=== PATIENT | female | born 1940 | race Caucasian/White ===

== ENCOUNTER 2016-05-21 06:22 | Outpatient (CLI) | payer MEDICARE ==
[~2016-05-21] VITALS: Ht 175.3 cm; Wt 34.0 kg
[2016-05-21 07:08] LABS: HEMOGLOBIN 10.5 gm/dl (12.3-15.3); RED BLOOD COUNT 4.48 M/UL (4.00-5.10); WHITE BLOOD COUNT 12.7 K/UL (4.5-11.0)
[2016-05-21 07:18] LABS: BUN/CREATININE RATIO 57 (0-10)
[2016-05-21] MEDS ORDERED: NORCO 5-325 TA1 EACH PO (09:56)
[2016-05-21] MEDS ORDERED: DALIRESP500 MCG PO (09:57)
[2016-05-21] MEDS ORDERED: NEURONTIN 100100 MG PO (09:57)
[2016-05-21] MEDS ORDERED: SYMBICORT 80-10.2 GM INH (09:58)
[2016-05-21] MEDS ORDERED: ASPIR 8181 MG PO (09:58)
[2016-05-21] MEDS ORDERED: PULMICORT0.25 MG/1 INH (09:59)
[2016-05-21] MEDS ORDERED: BROVANA15 MCG/2 M INH (09:59)
[2016-05-21] MEDS ORDERED: LIPITOR20 MG PO (10:00)
[2016-05-21] MEDS ORDERED: GLUCOPHAGE500 MG PO (10:01)
[2016-05-21] MEDS ORDERED: ZESTRIL10 MG PO (10:01)
[2016-05-21] MEDS ORDERED: COREG 3.125M3.125 MG PO (10:02)
[2016-05-21] MEDS ORDERED: KLONOPIN TAB 00.5 MG PO (10:02)
[2016-05-21] MEDS ORDERED: LASIX20 MG PO (10:03)
[2016-05-21] MEDS ORDERED: NORVASC 5 MG TAB5 MG PO (10:04)
[2016-05-21 19:04] LABS: RED BLOOD COUNT 3.81 M/UL (4.00-5.10); WHITE BLOOD COUNT 19.3 K/UL (4.5-11.0)
[2016-05-21 19:23] LABS: BUN/CREATININE RATIO 30 (0-10)
[2016-05-22 03:57] LABS: HEMOGLOBIN 8.3 gm/dl (12.3-15.3); RED BLOOD COUNT 3.59 M/UL (4.00-5.10)
[2016-05-22 04:02] LABS: WHITE BLOOD COUNT 14.3 K/UL (4.5-11.0)
[2016-05-22 04:21] LABS: BUN/CREATININE RATIO 50 (0-10)
[2016-05-22] MEDS ORDERED: COREG 12.5MG12.5 MG PO (09:36)
[2016-05-22] MEDS ORDERED: PLAVIX75 MG PO (09:40)
== END 2016-05-22 11:40 | disposition home or self-care (01) ==
LOC: CATH 06:22 → PROG CARE 15:38 → CATH 05-22 11:40
PROVIDERS: Internal Medicine
DX: I70.211 Atherosclerosis of native arteries of extremities with intermittent claudication, right leg (principal); I20.8 Other forms of angina pectoris; I42.9 Cardiomyopathy, unspecified; I48.0 Paroxysmal atrial fibrillation; I11.0 Hypertensive heart disease with heart failure; I50.9 Heart failure, unspecified; F17.210 Nicotine dependence, cigarettes, uncomplicated; E78.5 Hyperlipidemia, unspecified; R07.89 Other chest pain; E11.9 Type 2 diabetes mellitus without complications; C32.9 Malignant neoplasm of larynx, unspecified; J44.9 Chronic obstructive pulmonary disease, unspecified; R06.02 Shortness of breath; Z88.5 Allergy status to narcotic agent; Z88.7 Allergy status to serum and vaccine; Z79.82 Long term (current) use of aspirin; Z79.84 Long term (current) use of oral hypoglycemic drugs; Z79.891 Long term (current) use of opiate analgesic; Z79.899 Other long term (current) drug therapy; F41.9 Anxiety disorder, unspecified; M19.90 Unspecified osteoarthritis, unspecified site; R60.9 Edema, unspecified
CPT/HCPCS: 36415; 80048; 82962; 85025; 85027; 85347; 85610; 85730; 94640; C1769; C1876; J1644; J2250; J3010; J7030; Q9965

== ENCOUNTER 2016-05-21 07:36 | Emergency (ER) | payer MEDICARE ==
[2016-05-21] MEDS ORDERED: NORCO 5-325 TA1 EACH PO (09:56)
[2016-05-21] MEDS ORDERED: NEURONTIN 100100 MG PO (09:57)
[2016-05-21] MEDS ORDERED: DALIRESP500 MCG PO (09:57)
[2016-05-21] MEDS ORDERED: ASPIR 8181 MG PO (09:58)
[2016-05-21] MEDS ORDERED: SYMBICORT 80-10.2 GM INH (09:58)
[2016-05-21] MEDS ORDERED: BROVANA15 MCG/2 M INH (09:59)
[2016-05-21] MEDS ORDERED: PULMICORT0.25 MG/1 INH (09:59)
[2016-05-21] MEDS ORDERED: LIPITOR20 MG PO (10:00)
[2016-05-21] MEDS ORDERED: ZESTRIL10 MG PO (10:01)
[2016-05-21] MEDS ORDERED: GLUCOPHAGE500 MG PO (10:01)
[2016-05-21] MEDS ORDERED: COREG 3.125M3.125 MG PO (10:02)
[2016-05-21] MEDS ORDERED: KLONOPIN TAB 00.5 MG PO (10:02)
[2016-05-21] MEDS ORDERED: LASIX20 MG PO (10:03)
[2016-05-21] MEDS ORDERED: NORVASC 5 MG TAB5 MG PO (10:04)
[2016-05-22] MEDS ORDERED: COREG 12.5MG12.5 MG PO (09:36)
[2016-05-22] MEDS ORDERED: PLAVIX75 MG PO (09:40)
== END 2016-05-21 09:34 | disposition home or self-care (01) ==
LOC: ER1 07:36
DX: T14.8 Other injury of unspecified body region (principal); S80.811A Abrasion, right lower leg, initial encounter; W19.XXXA Unspecified fall, initial encounter; Z88.5 Allergy status to narcotic agent
CPT/HCPCS: 73502; 73590; 99283

== ENCOUNTER 2016-05-27 12:35 | Inpatient (IN) | payer MEDICARE ==
[~2016-05-27] VITALS: Ht 172.7 cm; Wt 42.0 kg
[~2016-05-27 12:35] MED LIST: ASPIR 8181 MG PO; BROVANA15 MCG/2 M INH; COREG 12.5MG12.5 MG PO; COREG 3.125M3.125 MG PO; DALIRESP500 MCG PO; GLUCOPHAGE500 MG PO; KLONOPIN TAB 00.5 MG PO; LASIX20 MG PO; LIPITOR20 MG PO; NEURONTIN 100100 MG PO; NORCO 5-325 TA1 EACH PO; NORVASC 5 MG TAB5 MG PO; PLAVIX75 MG PO; PULMICORT0.25 MG/1 INH; SYMBICORT 80-10.2 GM INH; ZESTRIL10 MG PO
[2016-05-27 14:15] LABS: RED BLOOD COUNT 2.72 M/UL (4.00-5.10); WHITE BLOOD COUNT 23.9 K/UL (4.5-11.0)
[2016-05-27 14:36] LABS: BUN/CREATININE RATIO 54 (0-10)
[2016-05-27 14:38] LABS: HEMOGLOBIN 6.5 gm/dl (12.3-15.3)
[2016-05-27] MEDS ORDERED: DALIRESP 500500 MCG PO (21:56)
[2016-05-27] MEDS ORDERED: PLAVIX 75 MG TA75 MG PO (21:57)
[2016-05-27] MEDS ORDERED: COREG 12.5MG12.5 MG PO (21:57)
[2016-05-27] MEDS ORDERED: LASIX20 MG PO (21:57)
[2016-05-27] MEDS ORDERED: GLUCOPHAGE XR500 MG PO (21:58)
[2016-05-27] MEDS ORDERED: MELATONIN3 M2 PO (21:58)
[2016-05-27] MEDS ORDERED: ZESTRIL/PRINIVI10 MG PO (22:00)
[2016-05-27] MEDS ORDERED: COMBIVENT0.074 GM/I INH (22:00)
[2016-05-27] MEDS ORDERED: LORTAB 5-325 M1 EACH PO (22:01)
[2016-05-27] MEDS ORDERED: ALDACTONE 25MG25 MG PO (22:02)
[2016-05-27] MEDS ORDERED: NEURONTIN 100100 MG PO (22:03)
[2016-05-28 05:44] LABS: HEMOGLOBIN 9.9 gm/dl (12.3-15.3); RED BLOOD COUNT 3.77 M/UL (4.00-5.10); WHITE BLOOD COUNT 14.7 K/UL (4.5-11.0)
[2016-05-28 05:55] LABS: BUN/CREATININE RATIO 55 (0-10)
--- NOTE | 2016-05-28 15:36 | NUR ---
@ 1257 patient back from EGD procedure, awake and alert, denies pain.
--- NOTE | 2016-05-28 18:07 | NUR ---
PATIENT WATCHING TV, DENIES N/V, DENIES PAIN.
[2016-05-29 04:30] LABS: HEMOGLOBIN 9.5 gm/dl (12.3-15.3); RED BLOOD COUNT 3.66 M/UL (4.00-5.10)
[2016-05-29 04:32] LABS: WHITE BLOOD COUNT 9.4 K/UL (4.5-11.0)
[2016-05-29 04:57] LABS: BUN/CREATININE RATIO 70 (0-10)
[2016-05-29] MEDS ORDERED: ASPIR 8181 MG PO (19:41)
[2016-05-29] MEDS ORDERED: DIFLUCAN100 MG PO ×2 (20:48→20:49)
[2016-05-29] MEDS ORDERED: PROTONIX40 MG PO (20:49)
== END 2016-05-29 21:44 | disposition home or self-care (01) | DRG 377 ==
LOC: ER1 12:35 → MED SURG 4 15:22 → ZEROF 15:22 → MED SURG 4 18:10 → ZEROF 18:10 → MED SURG 4 05-29 21:44
PROVIDERS: Emergency Medicine; Internal Medicine; Internal Medicine Gastroenterology; Physician Assistant Medical; ADMIT Hospitalist
PROC: 30233N1 Transfusion of Nonautologous Red Blood Cells into Peripheral Vein, Percutaneous Approach (ICD-10-PCS; 2016-05-27)
PROC: 0DJ08ZZ Inspection of Upper Intestinal Tract, Via Natural or Artificial Opening Endoscopic (ICD-10-PCS; principal; 2016-05-28 12:15)
DX: K29.81 Duodenitis with bleeding (principal); E43 Unspecified severe protein-calorie malnutrition; J96.10 Chronic respiratory failure, unspecified whether with hypoxia or hypercapnia; Z68.1 Body mass index [BMI] 19.9 or less, adult; I42.9 Cardiomyopathy, unspecified; B37.81 Candidal esophagitis; K27.9 Peptic ulcer, site unspecified, unspecified as acute or chronic, without hemorrhage or perforation; E11.51 Type 2 diabetes mellitus with diabetic peripheral angiopathy without gangrene; K44.9 Diaphragmatic hernia without obstruction or gangrene; R63.4 Abnormal weight loss; I10 Essential (primary) hypertension; I49.9 Cardiac arrhythmia, unspecified; J44.9 Chronic obstructive pulmonary disease, unspecified; E87.6 Hypokalemia; D64.9 Anemia, unspecified; F17.210 Nicotine dependence, cigarettes, uncomplicated; M19.90 Unspecified osteoarthritis, unspecified site; Z85.89 Personal history of malignant neoplasm of other organs and systems; Z79.02 Long term (current) use of antithrombotics/antiplatelets; Z79.82 Long term (current) use of aspirin; Z85.831 Personal history of malignant neoplasm of soft tissue; Z95.820 Peripheral vascular angioplasty status with implants and grafts; Z79.84 Long term (current) use of oral hypoglycemic drugs
CPT/HCPCS: 36415; 71010; 80048; 80053; 81001; 82550; 82553; 82962; 83605; 83690; 83735; 83874; 83880; 84100; 84484; 85025; 85027; 85610; 85730; 86850; 86900; 86901; 86920; 87040; 93005; 94640; 94664; 96361; 96365; 96375; 99285; C9113; J0696; J1940; J2250; J2920; J3010; J7030; J7040; J7050; P9016; Q0163